=== PATIENT | male | born 2000 ===

== ENCOUNTER → 2021-10-07 | Outpatient (CLI) | payer SELFPAY ==
[2021-10-07 17:09] LABS: Source, Urine Clean Catch
[2021-10-07 17:22] LABS: Amorphous Heavy (0-Heavy); Appearance, Urine Cloudy (Clear); Bacteria Not Seen /hpf; Bilirubin, Urine Neg (Neg); Blood, Urine Neg (Neg); Color, Urine Yellow (P-Yellow); Glucose Qualitative, Urine Neg (Normal); Ketones, Urine Neg (Neg); Leukocyte Esterase, Urine Neg (Neg); Nitrite, Urine Neg (Neg); Protein, Urine Neg (Neg); Red Blood Cells, Urine Not Seen /hpf (0-2); Specific Gravity, Urine 1.015 (1.003-1.022); Squamous Epithelial Cells Not Seen /hpf (Few); Urobilinogen, Urine NORM (Normal); White Blood Cells, Urine 0-2 /hpf (0-5)
== END | disposition home or self-care (01) ==
LOC: LAB SHORT 17:07 → LAB EV OCC 17:07
PROVIDERS: Family Medicine
DX: Z00.00 Encounter for general adult medical examination without abnormal findings (principal)
CPT/HCPCS: 81001